=== PATIENT | male | born 1975 | race Two or more races ===

== ENCOUNTER 2024-10-07 11:36 | Emergency (ER) | payer MEDICAID, SELFPAY ==
[2024-10-07 11:42] VITALS: BP 148/95; PULSE 70; RESP 19; TEMP 36.8; O2SAT 98; BMI 27.6
--- NOTE | 2024-10-07 12:23 | XR_ITS ---
Examination: Left knee 2 views Technique one AP lateral left knee 2 views Exam date and time: October 06, 2024 1232 hrs. Indications: Left knee pain beginning 4 days ago no injury Findings: Moderate to advanced tricompartment osteoarthritis, most severe medial patellofemoral joints No fracture Small knee effusion Impression: Moderate to advanced tricompartment osteoarthritis
--- NOTE | 2024-10-07 12:23 | XR_ITS ---
Examination: Right knee 2 views Technique: AP lateral right knee 2 views Exam date and time: October 07, 2024 1229 hrs. Indications: Knee pain beginning 4 days ago Findings: Moderate to advanced tricompartment osteoarthritis, most severe medial patellofemoral joints Moderate knee effusion No fracture Impression: Moderate to advanced tricompartment osteoarthritis
--- NOTE | 2024-10-07 12:24 | EDNOTE_ITS ---
ED General RME/HPI General Chief complaint: General Adult/Misc Complain Stated complaint: PAIN: B/L KNEE, BUTTOCKS, L SHOULDER Time Seen by Provider: 10/07/24 12:02 Arrival date/time: 10/07/24 11:36 RME / HPI RME / HPI narrative: 49-year-old male patient with no significant medical history, came in for evaluation regarding bilateral knee pain. Onset of symptoms for several days, and has bilateral knee pain, described as dull ache, severity moderate. Patient pain is worse with ambulation. Also complained of pain to the left shoulder, and bilateral hips, described as dull ache, severity mild. Patient denies any redness or swelling. Patient denies any trauma or fall. Denies any fever. Denies any other complaints no medications taken prior travel. Related Data Previous Rx's ?Medication ?Instructions ?Recorded IBU 800 mg tablet (ibuprofen) 800 mg PO Q6H PRN pain #30 tabs 08/26/24 baclofen 10 mg tablet 10 mg PO .qhs #30 tabs 08/26/24 ibuprofen 800 mg tablet 800 mg PO TID PRN pain #30 tabs 10/07/24 Allergies Allergy/AdvReac Type Severity Reaction Status Date / Time No Known Allergies Allergy Verified 10/07/24 11:39 Review of Systems Review of Systems Narrative Review of Systems: Review of system reviewed and within normal limits except mentioned in HPI ED Exam Narrative Physical exam: VITAL SIGNS: Reviewed. GENERAL APPEARANCE: Alert and interactive, follows commands, no acute distress, HEAD AND FACE: Non-traumatic. ENT: PERRL, pink conjunctivitis, eyelid no trauma, Mucous membrane moist. NECK: Supple, nontender, no nuchal rigidity. CHEST: No tenderness, no crepitus, no paradoxical movement, no retractions. LUNGS: Clear, well ventilated, symmetric, no rales, no wheezing, no ronchi, no stridor, good breath sounds bilaterally. HEART: Regular rate, regular rhythm, no murmur, no gallops. ABDOMEN: Soft, positive bowel sounds, nondistended, no guarding, nontender, no rebound, no masses, RECTAL: Deferred. GENITAL: Deferred. NEUROLOGICAL: Gross motor function intact sensory function intact, Appropriate for age. MUSCULOSKELETAL: low back nontender, full range of motion. EXTREMITIES: Bilateral knee tenderness, no swelling no redness full range of motion. Left shoulder tenderness, bilateral hip tenderness no redness no swelling SKIN: Color pink, dry, no rash, no lacerations, no abrasions, no contusions. LYMPHATICS: Deferred. Course Quality Measures none Orders Category Date Time Status XR knee limited LT 2V Stat Exams 10/07/24 12:23 Completed XR knee limited RT 2V Stat Exams 10/07/24 12:23 Completed Ibuprofen Tab [Motrin Tab] Med 10/07/24 12:23 Discontinued 800 mg PO X1 ONE Vital Signs Vital signs: Vital Signs Temperature 98.3 F 10/07/24 11:42 Pulse Rate 70 10/07/24 11:42 Respiratory Rate 19 10/07/24 11:42 Blood Pressure 148/95 H 10/07/24 11:42 Pulse Oximetry (%) 98 10/07/24 11:42 Oxygen Delivery Method Room Air 10/07/24 11:42 [facility] Patient data External records reviewed:: None Clinical information provided by:: none Social determinants that could affect healthcare access:: none Patient has the following chronic illnesses:: None How is presenting disease/condition affected by chronic disease/condition?: no chronic disease Evaluation data The following diagnostics were reviewed and interpreted by me:: radiology exam(s) Lab and/or radiology exams considered but not ordered:: None Interpretation Summary: X-ray of the bilateral knee showed osteoarthritis as interpreted by me Medications Medications considered but not ordered:: None Medication administrations:: Medication Administration History Discontinued Medications Ibuprofen (Ibuprofen Tab 400 Mg Tablet) 800 mg PO X1 ONE Stop: 10/07/24 12:24 Last Admin: 10/07/24 12:37 Dose: 800 mg Documented By: OA Balaji Consultations Consultation(s) initiated? (list below): No Diagnosis Differential Diagnosis ED Complaint MDM: Knee pain, polyarthralgia, oste oarthritis bilateral knee Most likely diagnosis given after review of the tests above:: Polyarthralgia Admission Indicated Admission indicated?: not indicated Explain why admission is indicated or not indicated:: Stable Admission Request Was there a request for admission?: No Disposition Plan Disposition Plan: Discharge Discharge Attestation Discharge Attestation: Patient condition: Stable Medical Decision Making MDM Narrative MDM Narrative: 49-year-old male patient with no significant medical history, came in for evaluation regarding bilateral knee pain. Onset of symptoms for several days, and has bilateral knee pain, described as dull ache, severity moderate. Patient pain is worse with ambulation. Also complained of pain to the left shoulder, and bilateral hips, described as dull ache, severity mild. Patient denies any redness or swelling. Patient denies any trauma or fall. Denies any fever. Denies any other complaints no medications taken prior travel. X-ray bilateral knee showed significant osteoarthritis noted otherwise unremarkable. Patient received Motrin. Patient stable discharge Differential Diagnosis Differential Diagnosis: Knee pain, polyarthralgia, osteoarthritis bilateral knee Discharge Plan Plan Patient Disposition: HOME (Self Care) Disposition Comment: stable Prescriptions/Referrals Prescriptions/Med Rec: New ibuprofen 800 mg tablet 800 mg PO TID PRN (Reason: pain) Qty: 30 0RF No Action ibuprofen [IBU] 800 mg tablet 800 mg PO Q6H PRN (Reason: pain) Qty: 30 0RF baclofen 10 mg tablet 10 mg PO .qhs Qty: 30 0RF Problem List Clinical Impression: Polyarthralgia Patient/Caregiver Discharge Instructions Discharge Activity: activity as tolerated Education Materials: Arthritis: Exercise Additional Instructions: Thank you for the opportunity for serving you today. You are stable for discharged . You are advised to: Follow-up with your PCP in 1 to 2 days Return to ED for worsening of symptoms Increase oral fluids Take medication as prescribed Print Language: Ukrainian Stand Alone Forms: Ivana Award Info., Patient Portal Info Letter JN/KAIDEN Supervising Physician JN/KAIDEN Supervising Physician: MD Clara
[2024-10-07] MEDS: IBUPROFEN TAB 400 MG TABLET 800 MG PO (12:37)
== END 2024-10-07 15:12 | disposition home or self-care (01) ==
PROVIDERS: Emergency Provider Emergency Medicine
DX: M17.0 Bilateral primary osteoarthritis of knee (principal)
CPT/HCPCS: 73560; 99283; A9270

== ENCOUNTER 2025-04-28 11:34 | Emergency (ER) | payer MEDICAID, SELFPAY ==
[2025-04-28 11:48] VITALS: BP 155/85; PULSE 72; RESP 18; TEMP 36.7; O2SAT 98; BMI 28.3
--- NOTE | 2025-04-28 12:14 | XR_ITS ---
Examination: Lumbar spine 3 views Technique: AP lateral coned lateral lower lumbar spine 3 views Date and time: April 28, 2025, 1223 hrs. Indications low back one year Findings: Minimal anterolisthesis L4 on L5. Mild diffuse lumbar disc narrowing Mild lumbar spondylosis No lumbar fracture Impression: Mild diffuse lumbar degenerative disc disease
--- NOTE | 2025-04-28 12:14 | PD.EDEXREM ---
ED Extremity Problem RME/HPI General Chief complaint: Extremity Problem,Nontraumatic Stated complaint: Knee pain X 3 months Time Seen by Provider: 04/28/25 11:39 Source: patient Arrival date/time: 04/28/25 11:34 Mode of arrival: ambulatory Limitations: language barrier RME / HPI RME / HPI Narrative: 49-year-old male presents for evaluation of right knee pain x 3 months. He denies trauma and states that pain was gradual in onset. He describes it as aching that is worse with walking and range of motion. Denies fever, neck pain, bladder and bowel incontinence, weakness, numbness, tingling. Patient notes low back pain with intermittent radiation down his bilateral posterior thighs. He reports some improvement in his symptoms following ibuprofen at home. Patient denies taking analgesics prior to arrival to the ED. Patient has not been evaluated for this concern prior to today. MD Complaint: extremity pain Onset (ago): month(s) Location: right and knee Quality: aching Relieving factors: immobilization Exacerbating factors: range of motion and walking Associated symptoms: denies other symptoms Related Data Previous Rx's ?Medication ?Instructions ?Recorded IBU 800 mg tablet (ibuprofen) 800 mg PO Q6H PRN pain #30 tabs 08/26/24 baclofen 10 mg tablet 10 mg PO .qhs #30 tabs 08/26/24 ibuprofen 800 mg tablet 800 mg PO TID PRN pain #30 tabs 10/07/24 cyclobenzaprine 10 mg tablet 10 mg PO TID PRN muscle spasm #30 04/28/25 tabs gabapentin 100 mg capsule 100 mg PO BID 30 days #60 caps 04/28/25 ibuprofen 800 mg tablet 800 mg PO Q8H PRN pain #14 tabs 04/28/25 Allergies Allergy/AdvReac Type Severity Reaction Status Date / Time No Known Allergies Allergy Verified 04/28/25 11:40 Review of Systems Constitutional Constitutional: Denies body ache(s), Denies chills, Denies fever(s), Denies frequent falls, Denies headache(s) and Denies weakness Eyes Eyes: Denies blurry vision and Denies change in vision ENT Ears, Nose, Mouth, and Throat: Denies abnormal hearing, Denies dizziness, Denies facial pain, Denies headache(s) and Denies neck pain Cardiovascular Cardiovascular: Denies chest pain, Denies dyspnea, Denies leg edema and Denies palpitations Respiratory Respiratory: Denies cough, Denies dyspnea, Denies hemoptysis and Denies wheezing Gastrointestinal Gastrointestinal: Denies abdominal pain and Denies vomiting Genitourinary Genitourinary: Denies dysuria and Denies hematuria Musculoskeletal Musculoskeletal: Reports back pain, Reports joint swelling (Right knee.), Denies muscle cramps, Denies muscle weakness, Denies myalgias, Denies neck pain, Denies numbness and Denies tingling Integumentary/Breasts Skin/Breast: Denies new lesions and Denies wounds Neurologic Neurologic: Denies abnormal hearing, Denies dizziness, Denies frequent falls, Denies headache(s), Denies numbness, Denies tingling and Denies weakness Endocrine Endocrine: Denies palpitations Allergic/Immunologic Allergic/Immunologic: Denies wheezing Past Medical History Social History SMOKING STATUS: Never smoker ED Exam General Limitations: Present language barrier General appearance: Present alert and in no apparent distress Head Head exam: Present atraumatic and normocephalic Eye Eye exam: Present normal appearance, PERRL and EOMI ENT ENT exam: Present normal oropharynx and mucous membranes moist Neck Neck exam: Present normal inspection and full ROM Chest Chest inspection: Present normal inspection and symmetric chest wall rise Respiratory Respiratory exam: Present normal lung sounds bilaterally; Absent respiratory distress Cardiovascular Cardiovascular exam: Present regular rate and +S1 Abdominal Exam Abdominal exam: Present soft; Absent distention Extremities Exam Extremities exam: Present normal inspection Expanded Lower Extremity Exam Upper leg exam: Present normal inspection and full ROM; Absent tenderness Knee exam: Present normal inspection; Absent tenderness, swelling, crepitus, anterior drawer sign or laxity with varus Lower leg exam: Present normal inspection and full ROM Ankle exam: Present normal inspection and full ROM Neurovascular/Tendon exam: Present normal capillary refill Gait: observed and normal Back Exam Back exam: Present normal inspection and paraspinal tenderness (Lumbar region.); Absent CVA tenderness (R), CVA tenderness (L), vertebral tenderness, straight leg raise (R) or straight leg raise (L) Neurological Exam Neurological exam: Present alert and normal gait Psychiatric Psychiatric exam: Present normal affect Skin Skin exam: Present warm, dry and normal color Course Quality Measures none Orders Category Date Time Status XR lumbar spine 2-3V Stat Exams 04/28/25 12:14 Completed CYCLObenzaPRINE [Flexeril] Med 04/28/25 12:13 Discontinued 5 mg PO X1 ONE Gabapentin Med 04/28/25 12:13 Discontinued 100 mg PO X1 ONE Ketorolac Inj [Toradol Inj] Med 04/28/25 12:13 Discontinued 30 mg IM X1 ONE Vital Signs Vital signs: Vital Signs Temperature 98.0 F 04/28/25 11:48 Pulse Rate 72 04/28/25 11:48 Respiratory Rate 18 04/28/25 11:48 Blood Pressure 155/85 H 04/28/25 11:48 Pulse Oximetry (%) 98 04/28/25 11:48 Oxygen Delivery Method Room Air 04/28/25 11:48 Pulse ox 98% on room air, within normal limits. Extremity Problem MDM Narrative MDM Narrative:: 49-year-old male presented for evaluation of chronic back and knee pain. No trauma or prior injury to right knee therefore x-ray was deferred at this time. Mildly tender to palpation of right knee on exam with no gross deformity. Patient did have moderate paraspinal tenderness to bilateral lumbar palpation therefore x-ray was obtained which fortunately showed no acute fracture. Given the chronic nature of the patient's symptoms he was ultimately discharged with a short course of antispasmodics and plan to follow-up outpatient within the week for reevaluation. I advised for him to discuss a outpatient MRI with his PCP to better evaluate his chronic knee and back pain. Patient's pain was improved in the department following analgesics. Patient stable at time of discharge. Patient data External records reviewed:: [facility] previous records Clinical information provided by:: patient Social determinants that could affect healthcare access:: none Patient has the following chronic illnesses:: Hypertension. How is presenting disease/condition affected by chronic disease/condition?: uneffected by Evaluation data The following diagnostics were reviewed and interpreted by me:: radiology exam(s) Lab and/or radiology exams considered but not ordered:: Considered not ordered. Interpretation Summary: X-ray lumbar spine without acute fracture or dislocation. Mild degenerative disc disease. Medications / Prescriptions Medications or Prescriptions considered but not ordered:: Rx given. Medication administrations:: Medication Administration History Discontinued Medications Cyclobenzaprine HCl (Cyclobenzaprine 5 Mg Tablet) 5 mg PO X1 ONE Stop: 04/28/25 12:14 Last Admin: 04/28/25 12:41 Dose: 5 mg Documented By: VG Gabapentin (Gabapentin 100 Mg Capsule) 100 mg PO X1 ONE Stop: 04/28/25 12:14 Last Admin: 04/28/25 12:40 Dose: 100 mg Documented By: VG Ketorolac Tromethamine (Ketorolac Inj 60 Mg/2 Ml Vial) 30 mg IM X1 ONE Stop: 04/28/25 12:14 Last Admin: 04/28/25 12:41 Dose: 30 mg Documented By: VG Rx given. Consultations Consultation(s) initiated? (list below): No Diagnosis Extremity Problem Differential Diagnosis: deep venous thrombosis of upper extremity and other (Sciatica, ligamentous injury knee, lumbar spine fracture, cauda equina.) Most likely diagnosis given after review of the tests above:: Chronic right knee pain, degenerative disc disease of lumbar spine. Admission Indicated Admission indicated?: not indicated Admission Request Was there a request for admission?: No Disposition Plan Disposition Plan: Discharge Discharge Attestation Discharge Attestation: The patient and all family members were given an opportunity to ask questions and understood the discharge instructions. Discharge instructions specifically effects, indications for sooner follow up or return to the emergency department, and the expected course of current diagnosis. Patient condition: Stable Discharge Plan Plan Patient Disposition: HOME (Self Care) Discharge Disposition comment: stable Prescriptions/Referrals Prescriptions/Med Rec: New cyclobenzaprine 10 mg tablet 10 mg PO TID PRN (Reason: muscle spasm) Qty: 30 0RF ibuprofen 800 mg tablet 800 mg PO Q8H PRN (Reason: pain) Qty: 14 0RF gabapentin 100 mg capsule 100 mg PO BID 30 Days Qty: 60 0RF No Action ibuprofen [IBU] 800 mg tablet 800 mg PO Q6H PRN (Reason: pain) Qty: 30 0RF baclofen 10 mg tablet 10 mg PO .qhs Qty: 30 0RF ibuprofen 800 mg tablet 800 mg PO TID PRN (Reason: pain) Qty: 30 0RF Referrals: No Primary/Family,Physician [Primary Care Provider] - In 1 week Problem List Clinical Impression: Chronic low back pain, Sciatica Patient/Caregiver Discharge Instructions Education Materials: Leg Low Back Pain Poss Causes, ED Sciatica Additional Instructions: Take gabapentin twice daily for low back pain and sciatica. Take ibuprofen every 6 hours as needed for pain. Take Flexeril every 8 hours as needed for muscle spasm. Follow-up with primary care within the next week for reevaluation and possible PT consult. Consider outpatient MRI. Print Language: Andorran Stand Alone Forms: Ivana Award Info., Patient Portal Info Letter PA/GRIEVANCE AND APPEALS SPECIALIST Supervising Physician PA/GRIEVANCE AND APPEALS SPECIALIST Supervising Physician: Dr. Elizabeth
[2025-04-28] MEDS: GABAPENTIN 100 MG CAPSULE PO (12:40)
[2025-04-28] MEDS: KETOROLAC INJ 60 MG/2 ML VIAL 30 MG IM (12:41)
[2025-04-28] MEDS: CYCLObenzaPRINE 5 MG TABLET PO (12:41)
== END 2025-04-28 14:22 | disposition home or self-care (01) ==
PROVIDERS: Emergency Provider Emergency Medicine
DX: M54.40 Lumbago with sciatica, unspecified side (principal); M47.816 Spondylosis without myelopathy or radiculopathy, lumbar region; M51.369 Other intervertebral disc degeneration, lumbar region without mention of lumbar back pain or lower extremity pain; M25.561 Pain in right knee
CPT/HCPCS: 72100; 96372; 99283; J1885; A9270